=== PATIENT | female | born 1980 | race American Indian/Alaskan Native ===

== ENCOUNTER 2021-09-26 16:37 | Emergency (ER) | payer OTHER ==
[2021-09-26 16:57] VITALS: BP 117/66
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
[2021-09-27] MEDS ORDERED: MORPHINE 4 MG/1 ML INJ IV ONE (02:01)
[2021-09-27 02:20] LABS: Basophils # (Auto) 0.1 K/mm3 (0.0-0.1); Eosinophils # (Auto) 0.2 K/mm3 (0.0-0.4); Eosinophils % (Auto) 3.9 % (0.0-4.3); Hematocrit 34.4 % (30.3-42.9); Hemoglobin 11.3 gm/dl (10.1-14.3); Lymphocytes # (Auto) 1.5 K/mm3 (1.2-5.4); Lymphocytes % (Auto) 29.1 % (13.4-35.0); Mean Corpuscular HGB Conc 33 % (30-34); Mean Corpuscular Volume 91 fl (79-97); Monocytes # (Auto) 0.7 K/mm3 (0.0-0.8); Monocytes % (Auto) 13.4 % (0.0-7.3); Platelet Count 234 K/mm3 (140-440); Red Blood Count 3.79 M/mm3 (3.65-5.03); Red Cell Distribution Width 14.4 % (13.2-15.2)
[2021-09-27 02:37] LABS: Alanine Aminotransferase 32 units/L (7-56); Albumin 3.6 g/dL (3.9-5); BUN/Creatinine Ratio 17; Blood Urea Nitrogen 15 mg/dL (7-17); Calcium 8.8 mg/dL (8.4-10.2); Hemolysis Index 2
[2021-09-27] MEDS ORDERED: SODIUM CHLORIDE 0.9% 1000 ML 1,000 ML IV ONE ×2 (02:57)
[2021-09-27] MEDS ORDERED: INSULIN REGULAR, HUMAN 100 UNITS/1 ML IV ONE (02:58)
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
== END 2021-09-27 06:00 | disposition left against medical advice (07) ==
LOC: ED 16:37
DX: S70.00XA Contusion of unspecified hip, initial encounter (principal); R10.9 Unspecified abdominal pain; R10.31 Right lower quadrant pain; R10.32 Left lower quadrant pain; E11.65 Type 2 diabetes mellitus with hyperglycemia; V89.2XXA Person injured in unspecified motor-vehicle accident, traffic, initial encounter; Y93.9 Activity, unspecified; Y92.89 Other specified places as the place of occurrence of the external cause; Y99.8 Other external cause status
CPT/HCPCS: 36415; 73521; 80053; 83690; 84703; 85025; 96361; 96374; 96375; 99284; J2270; J7030; Q9967; J1815